=== PATIENT | female | born 1990 | race Caucasian/White ===

== ENCOUNTER 2016-03-31 17:38 | Emergency (ER) | payer OTHER ==
[~2016-03-31] VITALS: Ht 147.3 cm; Wt 90.7 kg
[~2016-03-31 17:38] MED LIST: AUGMENTIN 875 M1 TAB PO; FLONASE120 SPRAY/ NASB; HYDROCORTISONE120 GM TOP; IBUPROFEN800 MG PO; NAPROXEN500 MG PO
--- NOTE | 2016-03-31 18:09 | ED DYSPNEA/ASTHMA COMPLAINT ---
History of Present Illness General Chief Complaint: Dyspnea (COPD, CHF, Other) Stated Complaint: ?ASTHMA ATTACK Source: patient Exam Limitations: no limitations Vital Signs & Intake/Output Vital Signs & Intake/Output Vital Signs Date Time Temp Pulse Resp B/P Pulse O2 O2 Flow FiO2 Ox Delivery Rate 03/31 2027 98.4 88 18 128/68 99 Room Air Room Air 03/31 1900 98 03/31 1822 98.9 99 14 126/60 99 Room Air 03/31 1819 99 Room Air 03/31 1756 98.8 98 20 134/80 96 Room Air Allergies Uncoded Allergies: CAT HAIR/DANDER (EYES SWELL AND ITCH 03/22/14) DUST (TRIGGERS ASTHMA 03/22/14) MOLD (TRIGGERS ASTHMA 03/22/14) POISON RABIA (HIVES 03/22/14) Reconcile Medications Albuterol Sulfate (Proair Hfa) 90 MCG HFA.AER.AD 2 PUF INH Q4-6 PRN PRN sob AMOXICILLIN/POTASSIUM CLAV (Augmentin 875-125 Tablet) 875 MG/125 MG TAB 1 TAB PO BID sinusitis Azithromycin (Zithromax) 250 MG TABLET 1 DP PO AD bronchitis 2 the first day followed by 1 for days 2-5 Benzonatate (Tessalon Perle) 100 MG CAPSULE 1 CAP PO TID cough Fluticasone Propionate (Flonase) 50 MCG/ACTUATION SPRAY.SUSP 2 SPRAY NASB DAILY PRN rhinitis Hydrocortisone (Hydrocortisone 1% 120 Gm Cream) 1 % CREAM..G. 1 LUIS FERNANDO TOP BID dermitis apply to affected area(s) Ibuprofen 800 MG TABLET 1 TAB PO PRN PAIN (Reported) Methylprednisolone. (Medrol) 4 MG TAB.DS.PK 1 DP PO AD bronchitis 6 on day 1 then reduce by one tablet daily until gone Naproxen 500 MG TABLET 1 TAB PO BID PRN pain Triage Nurses Notes Reviewed? yes Onset: Gradual Duration: week(s): (2) Timing: remote history Severity: moderate Activities at Onset: none Prior Episodes/Possible Cause: occasional episodes Modifying Factors: Improves With: immobilization. Associated Symptoms: cough HPI: Patient is a 25-year-old female with history of intermittent asthma presenting to the emergency department with chief complaint of increasing upper respiratory congestion, intermittently productive cough worsening over the past 2 weeks. Symptoms worsening over the past couple days. Denies fevers or chills. Work status cool, unsure of sick contacts. Symptoms are moderate worse if she tries to move around a lot. Denies chest pain. (MOHAMUD WEEMS) Past History Travel History Traveled to [place] past 21 day No Medical History Any Pertinent Medical History? see below for history Respiratory: asthma Musculoskeletal: fracture, 13 FRACTURED [place] Surgical History Surgical History: non-contributory Psychosocial History Who do you live with Mother What is your primary language Croatian Family History Hx Contributory? No (MOHAMUD WEEMS) Review of Systems Review of Systems Constitutional: Reports: see HPI, malaise. Comments Review of systems: See HPI, All other systems negative. Constitutional, no chills fever or weight loss HEENT: No visual changes Cardiovascular: No chest pain ,palpitation Skin, no jaundice no rashes Respiratory: No sputum or hemoptysis GI: No nausea no vomiting : No dysuria No hematuria Muscle skeletal: no back pain, no neck pain, Neurologic: No numbness no confusion Psych: No stress anxiety Immunology: No splenectomy or history of AIDS (MOHAMUD WEEMS) Physical Exam Physical Exam General Appearance: well developed/nourished, no apparent distress, alert, awake , comfortable Respiratory: normal breath sounds Comments: Well-developed well-nourished person in no acute distress HEENT: Pupils equally round and reactive to light and accommodation. Nose is atraumatic. External auditory canal and Tympanic membranes clear. Pharynx mildly erythematous.no exudates. No swelling or edema. Neck: Supple, no lymphadenopathy, normal range of motion without pain or tenderness Back: Nontender Cardiovascular: Regular rate and rhythms no murmurs rubs or gallops, normal JVP Respiratory: Chest nontender. No respiratory distress.minimla wheeze to auscultation bilaterally at bases Extremity: No edema Neuro: Alert oriented x3 Skin: No appreciable rash on exposed skin, skin is warm and dry. Psych: Mood and affect is normal, memory and judgment is normal. Core Measures ACS in differential dx? No Severe Sepsis Present: No Septic Shock Present: No (MOHAMUD WEEMS) Progress Differential Diagnosis: pneumonia, COPD, bronchitis, upper respiratory infection , sinusitis, viral syndrome Plan of Care: Orders Procedure Date/time Status URINE 03/31 1847 Complete Laboratory Tests 03/31/16 1857: Urine Test NEGATIVE Diagnostic Imaging: Viewed by Me: Radiology Read. Discussed w/RAD: Radiology Read. CXR Impression: PATIENT: NUZHAT CORTES PRESENT AGE: 25 PATIENT ACCOUNT NO: [id number] : 88 LOCATION: [facility] ORDERING PHYSICIAN: MOHAMUD RAMOS SERVICE DATE: 03/31/16 EXAM TYPE: RAD - XRY-CHEST XRAY, PA AND LATERAL EXAMINATION: XR CHEST CLINICAL INFORMATION: Cough. Evaluate for pneumonia. COMPARISON: Chest radiograph 09/27/2007. TECHNIQUE: PA and lateral views of the chest were obtained. FINDINGS: There is central peribronchial cuffing. Lungs are otherwise clear and well expanded. There is no focal consolidative disease or effusion. No pneumothorax. The cardiac silhouette and upper mediastinal contours are normal. No acute osseous finding. IMPRESSION: There is central peribronchial thickening which most likely represents a manifestation of reactive small airways disease. Otherwise unremarkable chest radiograph with no evidence of consolidative disease. DICTATED BY: ALIA WHITMAN,YOLIS Sequeira Initial ED EKG: none (MOHAMUD WEEMS) Departure Departure Time of Disposition: 1953 Disposition: HOME OR SELF CARE Condition: Stable Clinical Impression Primary Impression: Bronchitis Referrals: SUSANNA WHITMAN,SHANNON Wilcox (PCP/Family) Additional Instructions: Follow-up with your primary care physician calling appointment. Take Z-Man as prescribed. Take Medrol dosepak as directed, use Tessalon Perles for cough. Use Pro Air as directed. Departure Forms: Customer Survey General Discharge Information Prescriptions: Current Visit Scripts Azithromycin (Zithromax) 1 DP PO AD #6 TAB 2 the first day followed by 1 for days 2-5 Methylprednisolone. (Medrol) 1 DP PO AD #1 DP 6 on day 1 then reduce by one tablet daily until gone Benzonatate (Tessalon Perle) 1 CAP PO TID #30 CAP Albuterol Sulfate (Proair Hfa) 2 PUF INH Q4-6 PRN PRN sob #1 INHAL (MOHAMUD WEEMS) PA/FRUIT SORTER Co-Sign Statement Statement: ED Attending supervision documentation- [] I saw and evaluated the patient. I have also reviewed all the pertinent lab results and diagnostic results. I agree with the findings and the plan of care as documented in the PA's/FRUIT SORTER's documentation. [X] I have reviewed the ED Record and agree with the PA's/FRUIT SORTER's documentation. [] Additions or exceptions (if any) to the PAs/FRUIT SORTER's note and plan are summarized below: [] (TUAN WHITMAN,LUKAS Angelo) Procedures Additional Procedures Additional Procedures: duoneb Progress: She received DuoNeb treatment with improvement. improved airflow. (MOHAMUD WEEMS) Critical Care Note Critical Care Note Critical Care Time: non-applicable (MOHAMUD WEEMS)
[2016-03-31] MEDS ORDERED: MEDROL4 M2 PO (19:09)
[2016-03-31] MEDS ORDERED: ZITHROMAX250 M2 PO (19:09)
[2016-03-31] MEDS ORDERED: TESSALON PERLE100 M1 PO (19:09)
[2016-03-31] MEDS ORDERED: PROAIR HFA8.5 GM INH (19:09)
--- NOTE | 2016-03-31 19:49 | RADIOLOGY REPORT ---
EXAMINATION: XR CHEST CLINICAL INFORMATION: Cough. Evaluate for pneumonia. COMPARISON: Chest radiograph 09/27/2007. TECHNIQUE: PA and lateral views of the chest were obtained. FINDINGS: There is central peribronchial cuffing. Lungs are otherwise clear and well expanded. There is no focal consolidative disease or effusion. No pneumothorax. The cardiac silhouette and upper mediastinal contours are normal. No acute osseous finding. IMPRESSION: There is central peribronchial thickening which most likely represents a manifestation of reactive small airways disease. Otherwise unremarkable chest radiograph with no evidence of consolidative disease.
[2016-03-31 20:28] VITALS: BP 128/68
== END 2016-03-31 20:33 ==
LOC: ERH 17:38
DX: J40 Bronchitis, not specified as acute or chronic (principal)
CPT/HCPCS: 1263; 81025